=== PATIENT | female | born 1975 | race Caucasian/White ===

== ENCOUNTER 2020-06-02 18:12 | Emergency (ER) | payer BC, OTHER ==
[2020-06-02 19:04] LABS: HEMOGLOBIN 15.1 gm/dl (12.3-15.3); RED BLOOD COUNT 4.94 M/UL (4.00-5.10); WHITE BLOOD COUNT 8.3 K/UL (4.5-11.0)
[2020-06-02 19:16] LABS: BUN/CREATININE RATIO 13 (0-10)
[2020-06-02] MEDS ORDERED: ZOFRAN4 MG PO (22:01)
[2020-06-02] MEDS ORDERED: IBUPROFEN800 MG PO (22:01)
== END 2020-06-02 22:25 | disposition home or self-care (01) ==
LOC: ER1 18:12
PROVIDERS: Preventive Medicine Occupational Medicine
DX: I88.0 Nonspecific mesenteric lymphadenitis (principal); F17.200 Nicotine dependence, unspecified, uncomplicated; Z90.89 Acquired absence of other organs
CPT/HCPCS: 80053; 81001; 83690; 85025; 85610; 85652; 85730; 86140; 87086; 96374; 96375; 99284; J1170; J2405; Q9967

== ENCOUNTER → 2020-06-15 | Day surgery (SDC) | payer BC, OTHER ==
[~2020-06-15] MED LIST: IBUPROFEN800 MG PO; ZOFRAN4 MG PO
== END | disposition home or self-care (01) ==
LOC: OR 07:09
DX: K62.1 Rectal polyp (principal); K64.8 Other hemorrhoids; K29.70 Gastritis, unspecified, without bleeding; B96.81 Helicobacter pylori [H. pylori] as the cause of diseases classified elsewhere; J44.9 Chronic obstructive pulmonary disease, unspecified; E66.01 Morbid (severe) obesity due to excess calories; Z88.3 Allergy status to other anti-infective agents; Z80.52 Family history of malignant neoplasm of bladder; Z80.0 Family history of malignant neoplasm of digestive organs; Z68.30 Body mass index [BMI] 30.0-30.9, adult
CPT/HCPCS: J2704; J7040

== ENCOUNTER → 2020-10-17 | Outpatient (CLI) | payer BC | LOC: KOH-I 10-05 15:00 | DX: R91.8 Other nonspecific abnormal finding of lung field (principal) | CPT/HCPCS: 71250 ==

== ENCOUNTER → 2021-02-03 | Outpatient (CLI) | payer BC | LOC: CT 01-20 08:30 | DX: I88.0 Nonspecific mesenteric lymphadenitis (principal); N20.0 Calculus of kidney | CPT/HCPCS: Q9967 ==

== ENCOUNTER 2021-09-18 18:35 | Emergency (ER) | payer BC ==
[2021-09-18 19:57] LABS: HEMOGLOBIN 14.6 gm/dl (12.3-15.3); RED BLOOD COUNT 4.83 M/UL (4.00-5.10); WHITE BLOOD COUNT 8.7 K/UL (4.5-11.0)
[2021-09-18 20:16] LABS: BUN/CREATININE RATIO 8 (0-10)
== END 2021-09-18 23:15 | disposition home or self-care (01) ==
LOC: ER1 18:35
PROVIDERS: Emergency Medicine
DX: U07.1 COVID-19 (principal); Z23 Encounter for immunization; F17.200 Nicotine dependence, unspecified, uncomplicated; Z79.82 Long term (current) use of aspirin
CPT/HCPCS: 0240U; 71045; 80053; 82550; 82553; 84484; 85025; 93005; 96361; 96374; 96375; 99285; J1885; J2405; M0222